=== PATIENT | male | born 1975 | race Hispanic/Latino ===

== ENCOUNTER 2017-07-09 17:56 | Inpatient (IN) | payer SELFPAY ==
[2017-07-09] MEDS ORDERED: NITROGLYCERIN 0.4 MG 25 EA TAB SL ONE ×2 (18:08→18:18)
[2017-07-09] MEDS ORDERED: ASPIRIN TABLET 325 MG TAB ONE (18:08)
--- NOTE | 2017-07-09 18:15 | ED.PDOC ---
History of Present Illness - General Chief Complaint: Chest Pain/CO Stated Complaint: chest pain/sob Time Seen by Provider: 07/09/17 18:01 Source: patient, RN notes reviewed, Vital Signs reviewed Exam Limitations: no limitations - History of Present Illness Initial Comments: Patient comes in with c/o abdominal pain, chest pain and SOB for 1 week. Report he has no energy and just feels run down. Chest pain is mild, currently 1/10. SOB is worse when up moving around. Abdominal pain with early satiety. + heartburn, nausea with occasional vomiting. + constipation, no diarrhea. He does has a history of a CO at age 25 which was due to drug use. No further cardiac issues since. Timing/Duration: 1 week Severity: moderate Improving Factors: rest Worsening Factors: eating, movement Associated Symptoms: chest pain, loss of appetite, malaise, nausea/vomiting, shortness of breath Allergies/Adverse Reactions: Allergies NO KNOWN ALLERGY Allergy (Unverified 02/03/15 20:03) Review of Systems - Review of Systems Constitutional: States: malaise. Denies: chills, fever Respiratory: States: short of breath. Denies: cough Cardiology: States: see HPI, chest pain, edema. Denies: palpitations, syncope Gastrointestinal/Abdominal: States: see HPI, abdominal pain, constipation, nausea, vomiting. Denies: diarrhea Musculoskeletal: States: no symptoms reported Skin: States: no symptoms reported Neurological: States: no symptoms reported All other Systems: No Change from Baseline Past Medical History (General) - Patient Medical History Hx Cardiac Disorders: Yes - DRUG INDUCED CO - Vaccination History Hx Tetanus, Diphtheria Vaccination: Yes - Female History Patient : No Family Medical History - Family History Father Family History: No Known Living Status: Unknown Physical Exam - Physical Exam General Appearance: Alert, Ill Appearing, Well Developed, Well Groomed, Well Hydrated, Well Nourished Ears, Nose, Throat: hearing grossly normal Neck: supple, normal inspection Respiratory: lungs clear, normal breath sounds, no respiratory distress, no accessory muscle use Cardiovascular/Chest: normal peripheral pulses, no gallop, no murmur, tachycardia Peripheral Pulses: radial,right: 2+, radial,left: 2+ Gastrointestinal/Abdominal: normal bowel sounds, guarding - RUQ & epigastric - no rebound, tenderness - RUQ & epigastric with + Morrissey's sign Extremity: normal range of motion, non-tender, pedal edema - 1-2+ pitting edema Neurologic: alert, normal mood/affect, oriented x 3 Skin Exam: pallor Progress - Progress Progress: 07/09/17 20:21 After multiple discussions patient finally agreed to Admission for new onset CHF , SVT and cholecystitis. Discussed with Jana Larose NP - will admit. - Results/Orders Results/Orders: Laboratory Tests 07/09/17 07/09/17 07/09/17 18:09 18:09 18:09 WBC 7.4 RBC 5.68 Hgb 14.8 Hct 45.1 MCV 79.4 L MCH 26.1 L MCHC 32.8 L RDW 14.6 H Plt Count 308 MPV 9.4 Absolute Neuts (auto) 4.70 Absolute Lymphs (auto) 2.10 Absolute Monos (auto) 0.50 Absolute Eos (auto) 0.00 Absolute Basos (auto) 0.00 Neutrophils % 63.6 Lymphocytes % 29.1 Monocytes % 6.7 Eosinophils % 0.0 L Basophils % 0.6 D-Dimer, Quantitative 651 H* Sodium 136 Potassium 3.3 L Chloride 101 Carbon Dioxide 30 Anion Gap 8.3 L BUN 14 Creatinine 1.46 H BUN/Creatinine Ratio 9.6 L Random Glucose 81 Serum Osmolality 271.5 L Calcium 8.8 Total Bilirubin 1.9 H AST 27 ALT 22 Alkaline Phosphatase 85 Creatine Kinase 97 CK-MB (CK-2) 3.2 CK-MB (CK-2) % Not Reportable Troponin I 0.03 B-Natriuretic Peptide 2230.0 H* Serum Total Protein 6.8 Albumin 3.2 Globulin 3.6 H Albumin/Globulin Ratio 0.9 L - EKG/XRAY/CT EKG: Sinus, Tachy, nonspecific ST T wave Chg Comments: Rate 126 bpm XRAY: chest - No acute findings per Radiologist Xray Comments: GB Sono: Cholecystitis w/o cholelithiasis per Radiologist Departure - Departure Clinical Impression: SVT (supraventricular tachycardia), Cholecystitis, acute CHF (congestive heart failure) Qualifiers: Congestive heart failure type: unspecified congestive heart failure type Congestive heart failure chronicity: acute Qualified Code(s): I50.9 - Heart failure, unspecified Time of Disposition: 20:21 Disposition: Admit Patient Condition: Poor Departure Forms: ED Discharge - Pt. Copy, Patient Portal Self Enrollment Decision To Admit - Decistion To Admit Decision to Admit Reason: Admit from ER Decision to Admit Date: 07/09/17 Decision to Admit Time: 20:20
[2017-07-09] MEDS ORDERED: ASPIRIN TABLET 325 MG TAB PO ONE (18:18)
[2017-07-09] MEDS ORDERED: PANTOPRAZOLE SODIUM IV 40 MG VIAL IV ONE (18:26)
[2017-07-09] MEDS ORDERED: PANTOPRAZOLE SODIUM IV 40 MG VIAL ONE (18:27)
--- NOTE | 2017-07-09 19:38 | RAD ---
PROCEDURE: XR CHEST 1 VIEW HISTORY: Chest pain/SOB COMPARISON: None TECHNIQUE: Single projection of the chest was done. FINDINGS: The lung galo are well inflated . There are no discrete airspace infiltrates, pneumothoraces or pleural effusions. The pulmonary vascularity is normal. The cardiomediastinal silhouette is unremarkable for patient's age and sex. IMPRESSION: There is no acute pleural-parenchymal process seen in the imaged lung galo. Location of Interpretation: Teleradiology Electronically signed by: Kevin Bro MD 07/09/2017 7:37 PM CDT Workstation: [id number]
[2017-07-09] MEDS ORDERED: FUROSEMIDE INJ 40 MG/4 ML VIAL IV ONE (19:45)
--- NOTE | 2017-07-09 21:24 | HP ---
SUPERVISING PHYSICIAN: Cj Belcher MD CHIEF COMPLAINT: Shortness of breath. HISTORY OF PRESENT ILLNESS: This is a 42-year-old male patient who presented to the Emergency Room tonight due to about a week of shortness of breath. Over the last week or so, he has been very tired and has had significant swelling in his lower extremities. His girlfriend says he has not been sleeping at night and he gets very short of breath with any exertion. He has a history of a heart attack at age 25, most likely due to illicit drug intake at that time. He also had some kidney problems as a child, but has not been treated for anything since age 25. He also has bipolar disorder, although he does not take anything for that. He does smoke marijuana every morning as he says that helps it. In the Emergency Room tonight, he had lab done and his sodium was 136, potassium 3.3, chloride 101, carbon dioxide 30, BUN 14, creatinine 1.46. Glucose 81, serum osmolality 271.5, total bilirubin 1.9. Cardiac enzymes were negative, but his BNP was 2,230. White count 7.4, hemoglobin 14.8, hematocrit 45.1. Neutrophils 63.6%, D-dimer elevated at 651. Chest x-ray per radiologic interpretation showed no acute pleural parenchymal process seen in the imaged lung galo. He also complained of some right upper quadrant abdominal pain and an ultrasound of the gallbladder was done and per radiologic interpretation , it showed positive sonographic Morrissey's sign and significantly increased gallbladder wall thickness suggesting cholecystitis. Other abnormalities including neoplasm is not excluded. Followup is recommended. I was called for admission to the hospital. I also called Dr. Douglas in consultation for the cholecystitis and he will be consulted and examine the patient in the morning. PAST MEDICAL HISTORY: 1. Kidney problems at age 10. 2. Myocardial infarction at age 25. 3. Bipolar disorder. PAST SURGICAL HISTORY: None. OUTPATIENT MEDICATIONS: None. ALLERGIES: NO KNOWN DRUG ALLERGIES. SOCIAL HISTORY: He lives in [place]. He is unmarried. He has 3 children. He has a previous history of smoking, but he quit several years ago. He does not drink any ETOH, but he does smoke marijuana every morning. He denies any other illicit drug use. REVIEW OF SYSTEMS: GENERAL: Positive for weight gain and fatigue. Negative for fever. HEENT: Negative for sinus symptoms, ear pain, vision changes or sore throat. RESPIRATORY: Positive for shortness of breath. Negative for wheezing, coughing. CARDIAC: Negative for chest pain, palpitations or tachycardia. GASTROINTESTINAL: Positive for right upper quadrant abdominal pain. Negative for nausea, vomiting, diarrhea, constipation. GENITOURINARY: Negative for hematuria, dysuria or polyuria. MUSCULOSKELETAL: Negative for back pain, arthralgias, myalgias. NEUROLOGIC: Negative for headache, dizziness or seizures. PHYSICAL EXAMINATION: VITAL SIGNS: Afebrile. Heart rate 121. Blood pressure 151/97. Respiratory rate 22. O2 saturation 97% on room air. GENERAL: This is a 42-year-old male patient who is sitting in his hospital bed in the Emergency Room. He is in mild respiratory distress. HEENT: Normocephalic, atraumatic. Pupils are equal and reactive. Oropharynx is clear. NECK: Supple without mass. There is discernible jugular venous distention. RESPIRATORY: Bilateral crackles throughout all lung galo. CHEST: There is equal rise and fall of the chest with inspiration and expiration. CARDIOVASCULAR: Tachycardic rate and regular rhythm. 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 ABDOMEN: Soft, nondistended. He does have some tenderness in the right upper quadrant, but no rebound tenderness. Bowel sounds are positive. EXTREMITIES: Bilateral edema to both lower extremities at +3. Pedal pulses are palpable at +2 bilaterally. SKIN: Warm and dry. No lesions or rashes noted. NEUROLOGIC: Awake, alert and oriented times three. Cranial nerves II-XII are intact. LABORATORY: Labs and films are as per the history of present illness. ASSESSMENT: 1. Acute exacerbation of congestive heart failure, newly diagnosed in a patient with a previous history of myocardial infarction at age 25. 2. History of myocardial infarction at age 25. 3. Cholecystitis per sonography. 4. Elevated blood pressure without diagnosis of hypertension, presently on no medications. 5. Bipolar disorder. 6. History of some kidney problems as a child. 7. Acute renal failure, most likely secondary to congestive heart failure. PLAN: We will admit the patient to the hospital. I have started congestive heart failure guidelines. He will need an echocardiogram as well as starting him on an SIM inhibitor as well as a beta hakeem. We will start those tonight. He has received some Lasix in the Emergency Room and I will give him an additional dose of IV Lasix tomorrow and start him on scheduled Lasix. I have given him some potassium supplementation tonight as his potassium was somewhat low. I consulted Dr. Douglas for the cholecystitis and I will make him NPO overnight. Dr. Douglas, general surgeon, will evaluate him in the morning and on Friday, it may be beneficial for Dr. Rojas, biomedical engineering supervisor, to be consulted. I have done extensive congestive heart failure teaching as well as recommending that he stop smoking marijuana. He will need to get a primary care provider as well as a biomedical engineering supervisor and he will need further congestive heart failure teaching. I have ordered AM labs as well as a chest x-ray. We will continue to monitor the patient closely and follow as needed. Dr. Belcher is the collaborating physician and available for consultation. #[id number] [facility]
[2017-07-09] MEDS ORDERED: NITROGLYCERIN 0.4 MG 25 EA TAB SL PRN (21:50)
[2017-07-09] MEDS ORDERED: POTASSIUM CHLORIDE 20 MEQ TAB PO ONE (21:59)
[2017-07-09] MEDS ORDERED: IV SET AND CAP CHANGE INJ INJ SCH (22:00)
[2017-07-09] MEDS ORDERED: FUROSEMIDE INJ 20 MG/2 ML VIAL IV ONE (22:00)
[2017-07-09] MEDS: LISINOPRIL 10 MG TAB PO SCH (22:29)
[2017-07-09] MEDS: SODIUM CHLORIDE 0.9% (FLUSH) 10 ML SYG IV PRN (22:32)
[2017-07-10] MEDS: FUROSEMIDE INJ 40 MG/4 ML VIAL IV SCH (08:52)
[2017-07-10] MEDS: METOPROLOL SUCCINATE XL 25 MG TAB PO SCH ×2 (08:53→09:26)
[2017-07-10] MEDS: ASPIRIN (CHEWABLE) 81 MG TAB PO SCH ×2 (08:55→09:25)
[2017-07-10] MEDS: LISINOPRIL 10 MG TAB PO SCH ×2 (08:55→09:26)
[2017-07-10] MEDS: SODIUM CHLORIDE 0.9% (FLUSH) 10 ML SYG IV SCH ×2 (08:56→21:01)
--- NOTE | 2017-07-10 08:56 | RAD ---
EXAM DESCRIPTION: Chest,2 Views CLINICAL HISTORY: CHF COMPARISON: July 09, 2017 FINDINGS: Frontal and lateral views of the thorax. Heart size within normal limits. Vascular pedicle does not appear widened. No cephalization is present. Decreased inspiration with bibasilar vascular crowding. No focal consolidation. No effusion or pneumothorax. Osseous structures intact. IMPRESSION: No radiographic findings for acute cardiopulmonary disease. Electronically signed by: Kyaw Longo MD 07/10/2017 8:54 AM CDT
--- NOTE | 2017-07-10 09:48 | US ---
EXAM DESCRIPTION: Gall Bladder CLINICAL HISTORY: RUQ/epigastric pain/+ Morrissey's COMPARISON: None. FINDINGS: There is a positive sonographic Morrissey's sign. The patient is not n.p.o. Gallbladder wall thickness is 12 mm, which is significantly increased. Common duct diameter is 5 mm. There is increased echogenicity of the liver most consistent with fatty infiltration. No focal hepatic lesion is seen. Liver span is 16.1 cm. The pancreas appears unremarkable. No gallstones are seen. No pericholecystic fluid. No significant free fluid is seen. IMPRESSION: Positive sonographic Morrissey's sign and significantly increased gallbladder wall thickness suggest cholecystitis. Other abnormality including neoplasm is not excluded. Follow-up is recommended. Electronically signed by: George Donato 07/09/2017 7:00 PM CDT
[2017-07-10] MEDS: NITROGLYCERIN 2% 1 GM UD TOP SCH ×2 (09:53→16:17)
--- NOTE | 2017-07-10 10:29 | CT ---
EXAM DESCRIPTION: CTA Chest CLINICAL HISTORY: sob COMPARISON: Chest radiograph today. TECHNIQUE: Spiral-axial scans at 2.5 mm intervals through the pulmonary arteries and chest after bolus infusion of IV contrast. Coronal and axial 15.0 Mm 3-D reformatted reconstructions. 15.0 mm PE oblique 3-D reformatted images. 2.5 mm helical axial scans with lung algorithm. No adverse reactions. Total Exam DLP: 650.56 mGy-cm. This exam was performed according to our departmental CT dose-optimization program which includes automated exposure control, adjustment of the mA and/or kV according to patient size and/or use of iterative reconstruction technique; to reduce radiation dose to as low as reasonably achievable (ALARA). FINDINGS: The pulmonary artery system is well demonstrated with contrast from the main pulmonary artery to the proximal bilateral subsegmental pulmonary artery branches. No filling defects bilaterally. The distal arterial branches are symmetric. Proximal brachiocephalic vessels and aorta are unremarkable. Moderate right pleural effusion. Apical pleural thickening on the right. Small pleural-based blebs on the left in the apex. Minimal atelectasis right lower lobe. Included thyroid gland is unremarkable. Small mediastinal and hilar lymph nodes. Limited visualization due to artifact from high dose contrast. No subdiaphragmatic free air or fluid. Included spleen and adrenal glands are unremarkable. Hydronephrosis in the included bilateral kidneys. Normal caliber of the proximal abdominal aorta. Included pancreas is unremarkable. Gallbladder is contracted. IMPRESSION: 1. No evidence of acute pulmonary embolus on chest CTA scan. 2. Moderate right pleural effusion. 3. Hydronephrosis in the bilateral renal upper poles. No ascites in the included abdomen. Electronically signed by: George Ramirez MD 07/10/2017 10:27 AM CDT
--- NOTE | 2017-07-10 11:05 | PCM.CORE ---
Physician DVT/VTE - Contraindications Medication Contraindication: Medical Contraindication - Nurse DVT Assessment & Total Each Risk Factor Represents 3 Points: Medical PT with Hx of NE, CHF, Severe infection/sepsis Each Risk Factor Represents 1 Point: Age 41-60, Hx of smoking past year Each Risk Factor is 1 Point: Obesity (BMI >25) DVT Assessment Score: 6 - 5 or more Very High Risk Treatments: Early Ambulation *, Sequential Compression Device
[2017-07-10] MEDS ORDERED: metroNIDAZOLE IV PREMIX 500MG 100 ML IVPB ONE ×3 (12:24→22:41)
[2017-07-10] MEDS: metroNIDAZOLE IV PREMIX 500MG 500 MG in PREMIX BAG 1 BAG IVPB SCH ×2 (12:28→21:10)
[2017-07-10] MEDS ORDERED: levoFLOXacin 750MG IV 750 MG in PREMIX BAG 1 BAG IVPB ONE (12:30)
[2017-07-10] MEDS ORDERED: KCL 20MEQ/WATER FOR INJ 100ML 20 MEQ in PREMIX BAG 1 BAG IVPB ONE (13:05)
--- NOTE | 2017-07-10 13:10 | CONS ---
DATE OF CONSULTATION: 07/10/17 HISTORY OF PRESENT ILLNESS: The patient is a 42-year-old male who was admitted yesterday with a one week history of ill health. His set of symptoms include shortness of breath, swelling in his legs, overall weakness, but he also says he had abdominal pain that was different than his regular reflux type symptoms. He stated that he did take Zantac and an antacid with no improvement. He states he finally came to the Emergency Room due to his shortness of breath. He denies any previous episode of like abdominal symptoms. He denies fatty food intolerance. PAST MEDICAL HISTORY: 1. Myocardial infarction at age 25 associated with cocaine use. 2. History of bipolar disorder. 3. Kidney problems as a child. 4. Reflux symptoms. PAST SURGICAL HISTORY: None. CURRENT MEDICATIONS: He takes no medications on a routine basis although he was prescribed medicine for his bipolar disorder. He does use marijuana on a routine basis. ALLERGIES: NO KNOWN DRUG ALLERGIES. SOCIAL HISTORY: The patient lives in [place] and has three children. He lives with his mother. He quit smoking several years ago. He drinks minimally. He denies other drug use. He denies IV drug use. He does smoke marijuana on a morning basis. FAMILY HISTORY: Positive for diabetes and heart disease. REVIEW OF SYSTEMS: Positive for weight gain and fatigue. No cough, chest pain , nausea, vomiting or change in bowel habits. No hematuria. PHYSICAL EXAMINATION: GENERAL: The patient is awake, alert, cooperative, in minimal distress. VITAL SIGNS: The patient is currently afebrile, normotensive. HEENT: Sclerae nonicteric. Mucous membranes moist. NECK: Without adenopathy. BACK: Without CVA tenderness. ABDOMEN: Tenderness in the right upper quadrant without mass or guarding. Bowel sounds are positive. RECTAL: Deferred. EXTREMITIES: Bilateral pedal edema. LABORATORY: White blood cell count 7.2, 66% neutrophils, hemoglobin 14.2, platelet count 272,000. Potassium 3.5, up from 3.3. Bilirubin up to 2 from 1.9. AST, ALT and alkaline phosphatase are within normal limits. BNP 2230 on admission and D-dimer of over 600. Ultrasound and CT scan of the abdomen are consistent with acute cholecystitis and gallstones. CTA of his chest reveals no sign of pulmonary embolism. ASSESSMENT: 1. Congestive heart failure with an uncertain cardiac status. 2. Acute cholecystitis and cholelithiasis. 3. Bipolar disorder. PLAN: Conservative management with antibiotics and bowel rest so that he may hopefully undergo a cardiac evaluation prior to general anesthesia I will follow this patient with you. #[id number] [facility]
--- NOTE | 2017-07-10 13:50 | PN ---
SUPERVISING PHYSICIAN: Cj Belcher MD DATE: 07/10/17 SUBJECTIVE: The patient is lying in bed. He is somewhat anxious. He says his girlfriend has been arguing with him and his daughter has taken his phone away from him to prevent further stress on the patient. He denies any shortness of breath and he actually says he feels much better. The swelling in his legs has gone down and his abdomen is less painful today. OBJECTIVE: VITAL SIGNS: Afebrile. Heart rate 112. Blood pressure 120/82. Respiratory rate 22. O2 saturation 93% on room air. Intake 480 mL. Output 270 mL with one unmeasured urine for a negative balance of 2,220 mL. Weight in the Emergency Room yesterday was 205 pounds and he is now down to 192 pounds. LUNGS: Essentially clear to auscultation bilaterally. CARDIAC: Tachycardic rate and regular rhythm. ABDOMEN: Continued diffuse tenderness in the right upper quadrant, but improved from yesterday. It is soft, nondistended. Bowel sounds are positive. EXTREMITIES: No edema today. It is improved greatly from yesterday. There is no cyanosis or clubbing. NEUROLOGIC: Awake, alert and oriented times three, but very anxious. LABORATORY: WBC 7.2, hemoglobin 14.2, hematocrit 43. Sodium 137, potassium 3.5 , chloride 104, carbon dioxide 27, BUN 16, creatinine 1.23. His total bilirubin is 2. Chest x-ray shows no radiographic for acute cardiopulmonary disease. CT of chest/thorax shows no evidence of acute pulmonary embolus on chest CTA scan. All other labs and films have been reviewed via the EMR. ASSESSMENT: 1. Acute exacerbation of congestive heart failure, unknown etiology, newly diagnosed in a patient with a previous history of myocardial infarction at age 25. 2. History of myocardial infarction at age 25. 3. Cholecystitis per sonography. 4. Elevated blood pressure without diagnosis of hypertension. 5. Elevated D-dimer with a negative CTA of the chest for pulmonary embolism. 6. Bipolar disorder. 7. History of some kidney problems as a child. 8. Acute renal failure, most likely secondary to congestive heart failure, improved. 9. History of illicit drug use. PLAN: We will continue present supportive care. Dr. Douglas has seen the patient. We plan to talk to Dr. Rojas in the morning and hopefully he can do an echocardiogram on him to help with the decision whether the patient needs a cholecystectomy. I have discussed his case with Dr. Douglas and we will put him on antibiotics as well as bowel rest. We can start some Lovenox this evening for DVT prophylaxis. I have given him some Ativan for anxiety. I have also given him some supplemental potassium. I will do routine blood work in the morning including an amylase and lipase. Encourage good pulmonary hygiene. We will continue to monitor the patient closely and follow as needed. Dr. Belcher is the collaborating physician and available for consultation. #[id number] [facility]
[2017-07-10] MEDS ORDERED: KCL 20MEQ/WATER FOR INJ 100ML 100 ML IVPB ONE (16:15)
[2017-07-10] MEDS ORDERED: ACETAMINOPHEN 325 MG TAB PO ONE (17:13)
[2017-07-10] MEDS ORDERED: ENOXAPARIN SODIUM 30 MG/0.3 ML SYG SUBCU SCH (20:00)
[2017-07-10] MEDS ORDERED: ACETAMINOPHEN SUPPOSITORY 650 MG PR ONE (20:43)
[2017-07-10] MEDS ORDERED: ENOXAPARIN SODIUM 40 MG/0.4 ML SYG SUBCU SCH (21:00)
[2017-07-10] MEDS: SODIUM CHLORIDE 0.9% (FLUSH) 10 ML SYG IV PRN (21:10)
[2017-07-11] MEDS ORDERED: ACETAMINOPHEN SUPPOSITORY 650 MG PR PRN (00:20)
[2017-07-11] MEDS: metroNIDAZOLE IV PREMIX 500MG 500 MG in PREMIX BAG 1 BAG IVPB SCH (04:59)
[2017-07-11] MEDS: NITROGLYCERIN 2% 1 GM UD TOP SCH (09:19)
[2017-07-11] MEDS: ASPIRIN (CHEWABLE) 81 MG TAB PO SCH (09:19)
[2017-07-11] MEDS: FUROSEMIDE INJ 40 MG/4 ML VIAL IV SCH (09:19)
[2017-07-11] MEDS: METOPROLOL SUCCINATE XL 25 MG TAB PO SCH (09:20)
[2017-07-11] MEDS: SODIUM CHLORIDE 0.9% (FLUSH) 10 ML SYG IV SCH (09:20)
[2017-07-11] MEDS: LISINOPRIL 10 MG TAB PO SCH (09:20)
[2017-07-11 09:54] VITALS: BP 126/86; TEMP 97.8; O2SAT 99
[2017-07-11] MEDS ORDERED: POTASSIUM CHLORIDE 20 MEQ TAB PO ONE (11:11)
[2017-07-11] MEDS ORDERED: levoFLOXacin 500MG IV 500 MG in PREMIX BAG 1 BAG IVPB SCH (14:00)
--- NOTE | 2017-07-23 19:44 | DS ---
SUPERVISING PHYSICIAN: Cj Belcher M.D. DISCHARGE DIAGNOSIS: 1. Acute exacerbation of congestive heart failure of unknown etiology newly diagnosed in a patient with a previous history of myocardial infarction at age 25. 2. History of myocardial infarction at age 25. 3. Cholecystitis per sonography. 4. Elevated blood pressure without diagnosis of hypertension. 5. Elevated D-dimer with a negative CTA of the chest for pulmonary embolism. 6. Bipolar disorder. 7. History of some kidney problems as a child. 8. Acute renal failure most likely secondary to congestive heart failure that has improved. 9. History of illicit drug use. 10. History of poor medical compliance. HISTORY OF PRESENT ILLNESS: This is a 42 year-old male patient who presented to the Emergency Room on the night prior to admission due to a week of shortness of breath. Over the prior week he had been very tired and had significant swelling in his lower extremities. He had not been sleeping much at night and he got very short of breath with any exertion. He has a history of a heart attack at age 25 that most likely was due to illicit drug intake at that time. He also had some kidney problems as a child but has not been treated for anything since age 25. He also has bipolar disorder although he does not take anything for that, except he does smoke marijuana every morning as he says that helps his bipolar disorder. In the E. R., he had lab done. His sodium was 136, potassium 3.3, chloride 101, carbon dioxide 30, BUN 14, creatinine 1.46, glucose 81, serum osmolality 271.5. Total bilirubin 1.9. Cardiac enzymes were negative but his BNP was 2,230. White count was 7.4, hemoglobin 14.1, hematocrit 45.1, neutrophils 63.6%. D-dimer was elevated at 651. Chest x-ray showed no acute pleural parenchymal processes seen in the imaged lung galo. He also complained of some right upper quadrant abdominal pain. An ultrasound of the gallbladder was done and per radiology interpretation showed positive sonographic Morrissey's sign and significantly increased gallbladder wall thickness suggesting cholecystitis. Other abnormalities including neoplasm were not excluded. I was called for admission to the hospital. Dr. Douglas was consulted for the cholecystitis. After Dr. Douglas saw him, he started him on Levaquin and Flagyl IV parenterally for the cholecystitis. HOSPITAL COURSE: He was given aggressive diuretics as well as started on an Juwan inhibitor and a beta hakeem. His urine drug screen was positive for amphetamines and methamphetamines, and his cannabinoid screen was positive. All others were negative. Dr. Douglas followed the patient during his hospital stay and because the patient's condition improved, any kind of surgical procedure was deferred at this time. He was strongly cautioned to not continue to use illicit drugs and to get his congestive heart failure under control because he would most likely need cholecystectomy in the near future. He was on bowel rest initially during his hospital stay and his diet was slowly advanced. He was put on a no fat diet and was instructed thoroughly about he no fat diet due to the gallbladder issues. He was also then changed to oral Lasix. He continued to have some bouts of nausea. The patient has decided to leave the hospital early and he has signed the against medical advice papers. DISCHARGE PLAN: The patient will be discharged home against medical advice. I did make an appointment for him to see Dr. Robertson at [facility]. He is encouraged to continue with his no fat diet as well as to discontinue use of illicit drugs. He was put on a beta hakeem as well as an Juwan inhibitor. He was given a prescription for Lasix and potassium. He has close followup with Dr. Robertson on 07/15/17 at 1:40 in the afternoon. He is to return to the hospital or followup with Dr. Robertson's office for any further problems or complications. He was given extensive congestive heart failure teaching and he was strongly encouraged to get an echocardiogram as well as a stress test. Hopefully Dr. Robertson will get him referred to a clean room technician for further treatment. DISCHARGE MEDICATIONS: 1. Levofloxacin. 2. Lisinopril. 3. Metoprolol. 4. Metronidazole. 5. Nitroglycerin. 6. Furosemide. 7. Potassium chloride. #[id number] [facility]
== END 2017-07-11 11:25 | disposition left against medical advice (07) | DRG 292 ==
LOC: ER 17:56 → OBSVTOIN 21:23 → MS 21:23
PROVIDERS: ADMIT Nurse Practitioner Acute Care; ATTEND Nurse Practitioner Acute Care
PROC: B32TYZZ Computerized Tomography (CT Scan) of Left Pulmonary Artery using Other Contrast (ICD-10-PCS; principal; 2017-07-10)
PROC: B32SYZZ Computerized Tomography (CT Scan) of Right Pulmonary Artery using Other Contrast (ICD-10-PCS; 2017-07-10)
DX: I50.9 Heart failure, unspecified (principal); N17.9 Acute kidney failure, unspecified; I47.1 Supraventricular tachycardia; K81.0 Acute cholecystitis; I25.2 Old myocardial infarction; R03.0 Elevated blood-pressure reading, without diagnosis of hypertension; F31.9 Bipolar disorder, unspecified; E87.6 Hypokalemia; R79.1 Abnormal coagulation profile; F12.90 Cannabis use, unspecified, uncomplicated; K59.00 Constipation, unspecified

== ENCOUNTER 2019-01-15 19:22 | Emergency (ER) | payer SELFPAY ==
--- NOTE | 2019-01-15 19:38 | ED.PDOC ---
History of Present Illness - General Chief Complaint: Abdominal Pain Stated Complaint: epigastric pain Time Seen by Provider: 01/15/19 19:34 Information Source: patient Exam Limitations: no limitations - History of Present Illness Initial Comments: Edd Mejia 43 y/o male came tonight with on and off dull upper abdominal pain for the last 3 MONTHS had been taking(otc) Zantac and some vitamin drinks which partially relieve his symptoms. Had been hospitalized 2 years ago for SVT and chf also has history of drug induced [place] at 25 years of age.Denies N/V,no post or pre prandial pain,no chest pains, no chronic cough but has some SOB and was prescribed heart medications in the past but not taking it.Has been followed up at [facility] but was told if it gets worse to come to ER. Abdominal Pain Onset Location: other - upper abdomen Pain Radiation: no radiation Quality: dull Timing/Duration: other - 3 MONTHS Improving Factors: nothing Worsening Factors: nothing Associated Symptoms: shortness of breath Review of Systems - Review of Systems Constitutional: States: no symptoms reported EENTM: States: no symptoms reported Respiratory: States: no symptoms reported Cardiology: States: no symptoms reported Gastrointestinal/Abdominal: States: see HPI All other Systems: Reviewed and Negative, No Change from Baseline Past Medical History (General) - Patient Medical History Hx Seizures: No Hx Stroke: No Hx Asthma: No Hx of COPD: No Hx Cardiac Disorders: Yes - DRUG INDUCED [place] Hx Congestive Heart Failure: Yes Hx Pacemaker: No Hx Hypertension: No Hx Diabetes: No Hx MRSA: No Surgical History: no surgical history - Vaccination History Hx Tetanus, Diphtheria Vaccination: Yes Hx Influenza Vaccination: No Hx Pneumococcal Vaccination: No - Social History Hx Tobacco Use: Yes Hx Alcohol Use: No Hx Substance Use: Yes - Smokes marijuana on occassion for stress Hx Depression: Yes Hx Physical Abuse: No Hx Emotional Abuse: No - Female History Patient : No Family Medical History - Family History Father Family History: No Known Living Status: Still Living Hx Family Asthma: Yes Hx Family Congestive Heart Failure: No Hx Family Hypertension: Yes Hx Family Stroke: No Hx Cardiac Disease: Yes Mother Living Status: Still Living Hx Family Asthma: No Hx Family Congestive Heart Failure: No Hx Family Hypertension: Yes Hx Family Stroke: No Hx Cardiac Disease: No Hx Family Diabetes: Yes Hx Family Cancer: No Physical Exam - Physical Exam General Appearance: Alert, Comfortable Eyes, Ears, Nose, Throat Exam: PERRL/EOMI, normal ENT inspection Neck: non-tender, supple, normal inspection Respiratory: chest non-tender, lungs clear, normal breath sounds, no respiratory distress Cardiovascular/Chest: normal peripheral pulses, regular rate, rhythm, no murmur Peripheral Pulses: No deficit Gastrointestinal/Abdominal: normal bowel sounds, non tender, soft, no organomegaly Back Exam: normal inspection, no CVA tenderness, no vertebral tenderness Extremity: normal range of motion, normal inspection, no calf tenderness, pedal edema - +1 ankle Neurologic: alert, oriented x 3 Skin Exam: normal color, warm/dry Progress - Progress Progress: 01/15/19 20:12 Vital Signs - 8 hr 01/15/19 01/15/19 19:38 19:58 Temperature 98.2 F 98.2 F Pulse Rate [ 119 H 119 H left] Respiratory 18 18 Rate Blood Pressure 127/85 127/85 [left] O2 Sat by Pulse 98 98 Oximetry Departure - Departure Clinical Impression: Abdominal pain Qualifiers: Abdominal location: upper abdomen, unspecified Qualified Code(s): R10.10 - Upper abdominal pain, unspecified Time of Disposition: 20:13 Disposition: Left Against Medical Advice Condition: Fair Departure Forms: ED Discharge - Pt. Copy, Patient Portal Self Enrollment Referrals: Tiburcio Doherty MD [Primary Care Provider] - 1-2 Weeks Home Medications: Ambulatory Orders Furosemide [Lasix] 20 mg PO DAILY #30 tab 07/11/17 Lisinopril 5 mg PO DAILY #30 tab 07/11/17 Metoprolol Tartrate 25 mg PO BID #60 tab 07/11/17 Nitroglycerin 0.4 mg Tab [Nitrostat] 1 ea SL Q5MIN PRN #1 bttl 07/11/17 Potassium Chloride [K-Tab] 10 meq PO DAILY #30 tab 07/11/17 levoFLOXacin [Levaquin] 500 mg PO QD #5 tab 07/11/17 metroNIDAZOLE [Flagyl] 500 mg PO TID #15 tab 07/11/17
[2019-01-15 19:55] VITALS: BP 127/85; TEMP 98.2; O2SAT 98
--- NOTE | 2019-01-15 19:55 | RAD ---
EXAM DESCRIPTION: Chest,1 View CLINICAL HISTORY: 43 years Male sob COMPARISON: July 10, 2017. TECHNIQUE: AP view of the chest was obtained. FINDINGS: Cardiac silhouette is enlarged. Central vessels are mildly increased. Patchy infrahilar airspace opacities bilaterally unchanged. No effusions bilaterally. No pneumothorax. IMPRESSION: Enlarged heart with mild central congestion. Suspected atelectatic change lower lungs bilaterally. No definite infiltrates. Electronically signed by: Sakshi Yan MD 01/15/2019 7:54 PM CDT
== END 2019-01-15 19:58 | disposition left against medical advice (07) ==
LOC: ER 19:22
DX: R10.10 Upper abdominal pain, unspecified (principal); R06.02 Shortness of breath; I25.2 Old myocardial infarction; I50.9 Heart failure, unspecified; F32.9 Major depressive disorder, single episode, unspecified; Z53.29 Procedure and treatment not carried out because of patient's decision for other reasons; Z87.891 Personal history of nicotine dependence